=== PATIENT | female | born 1945 | race Caucasian/White ===

== ENCOUNTER 2017-02-10 10:17 | Outpatient (CLI) | payer MEDICARE ==
--- NOTE | 2017-02-11 15:28 | Mammography Report ---
DIGITAL SCREENING MAMMOGRAM: 02/10/2017 CLINICAL INDICATION: A 71-year-old, for screening. COMPARISON: 03/2013, 09/2011, 07/2010, 04/2009, 03/2008, 03/2007. TECHNIQUE: Routine CC and MLO projections were obtained of the breasts. FINDINGS: The breasts again demonstrate scattered fibroglandular densities bilaterally. Coarse and p unctate, typically benign calcifications are present. No suspicious masses, clustered microcalcificat ions, or regions of architectural distortion are identified. IMPRESSION: BENIGN FINDINGS. RECOMMENDATION: ROUTINE ANNUAL SCREENING UNLESS OTHERWISE CLINICALLY INDICATED. BIRADS CATEGORY 2-BENIGN FINDINGS. STANDARD QUALIFYING STATEMENTS 1. This examination was reviewed with the aid of Computer-Aided Detection (CAD). 2. A negative or benign imaging report should not delay biopsy if clinically suspicious findings are present. Consider surgical consultation if warranted. More than 5% of cancers are not identified by i maging. 3. Dense breasts may obscure an underlying neoplasm. JOB #: [id number] EXT JOB #:[id number]
== END 2017-02-10 10:18 | disposition home or self-care (01) ==
LOC: DI.N 10:17
PROVIDERS: ATTEND Family Medicine
DX: Z12.31 Encounter for screening mammogram for malignant neoplasm of breast (principal)
CPT/HCPCS: 77067

== ENCOUNTER 2018-05-01 19:36 | Emergency (ER) | payer MEDICARE ==
[2018-05-01 20:31] LABS: BASOPHILS # (AUTO) 0.1 10^3/uL (0.0-0.1); BASOPHILS % (AUTO) 0.8 %; EOSINOPHILS # (AUTO) 0.1 10^3/uL (0.0-0.7); EOSINOPHILS % (AUTO) 0.6 %; HGB - HEMOGLOBIN 13.4 g/dL (12.0-16.0); LYMPHOCYTES # (AUTO) 2.6 10^3/uL (1.5-3.5); LYMPHOCYTES % (AUTO) 17.7 %; MEAN CORPUSCULAR HEMOGLOBIN 28.3 pg (27.0-31.0); MEAN CORPUSCULAR HGB CONC 33.7 g/dL (32.0-36.0); MEAN CORPUSCULAR VOLUME 83.8 fL (81.0-99.0); MEAN PLATELET VOLUME 7.6 fL (7.9-10.8); MONOCYTES # (AUTO) 0.8 10^3/uL (0.0-1.0); MONOCYTES % (AUTO) 5.6 %; NEUTROPHILS % (AUTO) 75.3 %; PLT - PLATELET COUNT 281 10^3/uL (130-450); RED BLOOD COUNT 4.72 10^6/uL (4.20-5.40); RED CELL DISTRIBUTION WIDTH 14.5 % (12.0-15.0); WHITE BLOOD COUNT 14.6 x10^3/uL (4.8-10.8)
[2018-05-01] MEDS ORDERED: MECLIZINE 12.5 MG TABLET PO STA (20:42)
[2018-05-01] MEDS ORDERED: ONDANSETRON 4 MG/2 ML VIAL IVP STA (20:42)
[2018-05-01] MEDS ORDERED: KETOROLAC 30 MG/ML VIAL IVP STA (20:42)
[2018-05-01 20:43] LABS: BILIRUBIN,TOTAL 0.9 mg/dL (0.2-1.0); CALCIUM 9.2 mg/dL (8.5-10.3); CREATININE 1.2 mg/dL (0.4-1.0); TOTAL PROTEIN 8.1 g/dL (6.7-8.2)
--- NOTE | 2018-05-01 20:46 | ED Physician Documentation ---
PD HPI NVD - Stated complaint Stated Complaint: NAUSEA/VOMITING - Chief complaint Chief Complaint: Abd Pain - History obtained from History obtained from: Patient - History of Present Illness Timing - onset: Other (About 12 days ago she developed a flulike illness with body aches, low-grade fevers, nausea. She was getting better and spent all weekend in bed and then went to work today and got worse again with more vomiting and feeling vertiginous with a mild headache. Also mild diarrhea. She has urinary frequency and notice her blood sugars are higher than normal in the high 200s.) Review of Systems Ten Systems: 10 systems reviewed and negative Constitutional: reports: Fever, Chills, Fatigue Nose: denies: Rhinorrhea / runny nose, Congestion Throat: denies: Sore throat Respiratory: reports: Cough GI: reports: Nausea, Vomiting, Diarrhea. 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 - Present Medications Home Medications: Ambulatory Orders Medication Instructions Recorded Confirmed Levothyroxine [Synthroid] 125 mcg PO QDAC 11/14/12 11/10/16 Meclizine [Antivert] 25 mg PO Q6H PRN #15 tablet 08/13/14 11/10/16 Betamethasone Dipropionate 45 gm TP BID 08/06/16 08/06/16 Citalopram [CeleXA] 10 mg PO DAILY 08/06/16 11/10/16 Cyclobenzaprine [Flexeril] 10 mg PO TID PRN 08/06/16 08/06/16 Glipizide [Glipizide ER] 5 mg PO DAILY 08/06/16 11/10/16 Lisinopril 10 mg PO DAILY 08/06/16 11/10/16 Pioglitazone HCl 30 mg PO DAILY 08/06/16 11/10/16 Pramipexole Di-HCl [Mirapex] 0.5 mg PO DAILY 08/06/16 11/10/16 Ondansetron Odt [Zofran] 4 mg PO Q6H PRN 11/10/16 11/10/16 Lorazepam [Ativan] 1 mg PO TID PRN #10 tablet 05/01/18 Ondansetron Odt [Zofran] 4 mg TL Q6H PRN #10 tablet 05/01/18 - Allergies Allergies/Adverse Reactions: Allergies Allergy/AdvReac Type Severity Reaction Status Date / Time cefuroxime Allergy Unknown Verified 08/06/16 10:38 moxifloxacin Allergy Unknown Verified 08/06/16 10:38 acetaminophen AdvReac Unknown Verified 08/06/16 10:38 hydrocodone AdvReac Unknown Verified 08/06/16 10:38 cillins AdvReac Intermediate Nausea Uncoded 10/11/14 18:55 - Social History Does the pt smoke?: No Smoking Status: Never smoker Does the pt drink ETOH?: Yes Does the pt have substance abuse?: No - Immunizations Immunizations are current?: Yes PD ED PE NORMAL - Vitals Vital signs reviewed: Yes - General General: Alert and oriented X 3, No acute distress - HEENT HEENT: PERRL, EOMI, Pharynx benign - Neck Neck: Supple, no meningeal sign, No bony TTP - Cardiac Cardiac: RRR, No murmur - Respiratory Respiratory: No respiratory distress, Clear bilaterally - Abdomen Abdomen: Normal bowel sounds, Soft, Non tender - Back Back: No CVA TTP, No spinal TTP - Derm Derm: Normal color, Warm and dry - Extremities Extremities: No edema, No calf tenderness / cord - Neuro Neuro: Alert and oriented X 3, Normal speech Eye Opening: Spontaneous Motor: Obeys Commands Verbal: Oriented GCS Score: 15 - Psych Psych: Normal mood, Normal affect Results - Vitals Vitals: Vital Signs - 24 hr 05/01/18 05/01/18 05/01/18 19:45 22:05 22:57 Temperature 36.6 C Heart Rate 98 84 83 Respiratory 18 18 18 Rate Blood Pressure 178/87 H 184/73 H 138/60 H O2 Saturation 97 96 93 Oxygen O2 Source Room air - Labs Labs: Laboratory Tests 05/01/18 05/01/18 05/01/18 19:55 20:25 20:25 WBC 14.6 H RBC 4.72 Hgb 13.4 Hct 39.6 MCV 83.8 MCH 28.3 MCHC 33.7 RDW 14.5 Plt Count 281 MPV 7.6 L Neut # (Auto) 11.0 H Lymph # (Auto) 2.6 [place] # (Auto) 0.8 Eos # (Auto) 0.1 Baso # (Auto) 0.1 Absolute Nucleated RBC 0.00 Nucleated RBC % 0.0 Sodium 136 Potassium 3.5 Chloride 100 L Carbon Dioxide 25 Anion Gap 11.0 BUN 35 H Creatinine 1.2 H Estimated GFR (MDRD) 44 L Glucose 132 H Calcium 9.2 Total Bilirubin 0.9 AST 19 ALT 16 Alkaline Phosphatase 75 Troponin I Total Protein 8.1 Albumin 4.0 Globulin 4.1 Albumin/Globulin Ratio 1.0 Lipase 20 L Urine Color Urine Clarity Urine pH Ur Specific [place] Urine Protein Urine Glucose (UA) Urine Ketones Urine Occult Blood Urine Nitrite Urine Bilirubin Urine Urobilinogen Ur Leukocyte Esterase Ur Microscopic Review Urine Culture Comments Influenza A (Rapid) Negative Influenza B (Rapid) Negative 05/01/18 05/01/18 22:00 22:40 WBC RBC Hgb Hct MCV MCH MCHC RDW Plt Count MPV Neut # (Auto) Lymph # (Auto) [place] # (Auto) Eos # (Auto) Baso # (Auto) Absolute Nucleated RBC Nucleated RBC % Sodium Potassium Chloride Carbon Dioxide Anion Gap BUN Creatinine Estimated GFR (MDRD) Glucose Calcium Total Bilirubin AST ALT Alkaline Phosphatase Troponin I < 0.04 Total Protein Albumin Globulin Albumin/Globulin Ratio Lipase Urine Color YELLOW Urine Clarity CLEAR Urine pH 5.0 Ur Specific [place] >=1.030 H Urine Protein NEGATIVE Urine Glucose (UA) NEGATIVE Urine Ketones NEGATIVE Urine Occult Blood TRACE-LYSE Urine Nitrite NEGATIVE Urine Bilirubin NEGATIVE Urine Urobilinogen 0.2 (NORMAL) Ur Leukocyte Esterase NEGATIVE Ur Microscopic Review NOT INDICATED Urine Culture Comments NOT INDICATED Influenza A (Rapid) Influenza B (Rapid) - Rads (name of study) 2v chest Radiology: EMP read contemporaneously (Elevated right hemidiaphragm without acute disease) PD MEDICAL DECISION MAKING - ED course ED course: 72-year-old woman with what sounds like a prodrome of a viral illness with subjective fevers, chills, body aches was improving but then over this last couple of days has become more vertiginous with vomiting and poor oral intake resulting in labs showing dehydration. She had a white blood cell count but no evidence of infectious process and a benign abdominal exam, clear chest x-ray, and unremarkable urinalysis. Did not get much help with meclizine but did feel better after Ativan and IV fluids. Departure - Departure Disposition: 01 Home, Self Care Clinical Impression: Vertigo, Viral syndrome Vomiting Qualifiers: Vomiting type: unspecified Vomiting Intractability: non-intractable Nausea presence: with nausea Qualified Code(s): R11.2 - Nausea with vomiting, unspecified Condition: Good Record reviewed to determine appropriate education?: Yes Instructions: ED Viral Syndrome, ED Nausea Vomiting Prescriptions: Lorazepam [Ativan] 1 mg PO TID PRN #10 tablet PRN Reason: Dizziness Ondansetron Odt [Zofran] 4 mg TL Q6H PRN #10 tablet PRN Reason: Nausea / Vomiting Comments: Call your doctor to arrange a follow-up appointment, make the next available a ppointment. In the interim, return anytime if worse or if new symptoms develop. Your blood pressure was elevated today on check into the emergency department. This does not mean that you have hypertension, it is a common phenomenon to come to the emergency department and have elevated blood pressure. I recommend that you see your primary care physician within the week to have it rechecked when you are feeling better.
[2018-05-01] MEDS ORDERED: SODIUM CHLORIDE 0.9% 1,000 ML IV ONE (20:58)
--- NOTE | 2018-05-01 21:25 | XRAY Report ---
Reason: cough Procedure Date: 05/01/2018 Accession Number: [id number] / [id number] Procedure: XR - Chest 2 View X-Ray CPT Code: 53307 FULL RESULT: EXAM: CHEST RADIOGRAPHY EXAM DATE: 05/01/2018 09:12 PM. CLINICAL HISTORY: Cough and shortness of breath for 3 days. Nausea for 1 day. COMPARISON: None. TECHNIQUE: 2 views. FINDINGS: Lungs/Pleura: No focal opacities evident. No pleural effusion. No pneumothorax. Normal volumes. Elevated right hemidiaphragm noted anteriorly. Mediastinum: Heart and mediastinal contours are unremarkable. Other: No bony abnormality noted. IMPRESSION: Elevated right hemidiaphragm anteriorly, otherwise unremarkable 2-view chest radiography. RAD[facility]
[2018-05-01] MEDS ORDERED: LORazepam 2 MG/ML VIAL IVP STA (22:06)
[2018-05-01 22:21] LABS: BILIRUBIN,URINE NEGATIVE (NEGATIVE); GLUCOSE, URINE (UA) NEGATIVE (NEGATIVE); KETONES,URINE (UA) NEGATIVE (NEGATIVE); LEUKOCYTE ESTERASE, URINE NEGATIVE (NEGATIVE); NITRITE,URINE NEGATIVE (NEGATIVE); OCCULT BLOOD,URINE TRACE-LYSE (NEGATIVE); PROTEIN,URINE NEGATIVE (NEGATIVE); UROBILINOGEN,URINE 0.2 (NORMAL) E.U./dL (NORMAL)
[2018-05-01 22:23] LABS: CLARITY,URINE CLEAR (CLEAR)
[2018-05-01 22:59] VITALS: BP 138/60
== END 2018-05-01 23:11 | disposition home or self-care (01) ==
LOC: ED 19:36
DX: B34.9 Viral infection, unspecified (principal); R42 Dizziness and giddiness; R11.2 Nausea with vomiting, unspecified; E86.0 Dehydration; E11.9 Type 2 diabetes mellitus without complications; I10 Essential (primary) hypertension; D72.9 Disorder of white blood cells, unspecified
CPT/HCPCS: 36415; 71046; 80053; 81003; 83690; 84484; 85025; 87275; 87276; 96361; 96374; 96375; 99283; 99284; A9270; J2060; 81001; 87086

== ENCOUNTER 2020-04-29 17:37 | Emergency (ER) | payer MEDICARE, OTHER ==
[2020-04-29] MEDS ORDERED: SODIUM CHLORIDE 0.9% 1,000 ML IV STA (18:17)
--- NOTE | 2020-04-29 18:19 | ED Physician Documentation ---
PD HPI DYSPNEA - Stated complaint Stated Complaint: DIZZY,SOA,FEVER,COUGH - Chief complaint Chief Complaint: Resp - History obtained from History obtained from: Patient, Family - History of Present Illness Timing - onset: How many weeks ago (2) Timing - onset during: Rest Timing - duration: Weeks (2) Timing - details: Gradual onset, Still present, Waxing and waning Inciting event(s): URI Improved by: Rest, Sitting up Worsened by: Exertion Associated symptoms: Fever, Cough, Other (dizziness/lightheaded) Similar symptoms before: Diagnosis (dehydration) Recently seen: Not recently seen - Additional information Additional information: 74-year-old diabetic female has developed a cough and congestion over the past 2 weeks she is continue to have this cough and she has become lightheaded and dizzy. She is called her primary care doctor who is asked that she come to the emergency department for evaluation. She does note intermittent fever. Review of Systems Constitutional: reports: Fever Eyes: denies: Decreased vision Ears: denies: Ear pain Nose: reports: Congestion. 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 - Present Medications Home Medications: Ambulatory Orders Medication Instructions Recorded Confirmed Levothyroxine [Synthroid] 125 mcg PO QDAC 11/14/12 11/10/16 Meclizine [Antivert] 25 mg PO Q6H PRN #15 tablet 08/13/14 11/10/16 Betamethasone Dipropionate 45 gm TP BID 08/06/16 08/06/16 Citalopram [CeleXA] 10 mg PO DAILY 08/06/16 11/10/16 Cyclobenzaprine [Flexeril] 10 mg PO TID PRN 08/06/16 08/06/16 Glipizide [Glipizide ER] 5 mg PO DAILY 08/06/16 11/10/16 Pioglitazone HCl 30 mg PO DAILY 08/06/16 11/10/16 Pramipexole Di-HCl [Mirapex] 0.5 mg PO DAILY 08/06/16 11/10/16 lisinopriL [Lisinopril] 10 mg PO DAILY 08/06/16 11/10/16 Ondansetron Odt [Zofran] 4 mg PO Q6H PRN 11/10/16 11/10/16 Lorazepam [Ativan] 1 mg PO TID PRN #10 tablet 05/01/18 Ondansetron Odt [Zofran] 4 mg TL Q6H PRN #10 tablet 05/01/18 Azithromycin [Zithromax] 250 mg PO DAILY #6 tablet 04/29/20 - Allergies Allergies/Adverse Reactions: Allergies Allergy/AdvReac Type Severity Reaction Status Date / Time codeine Allergy Hives Verified 04/29/20 17:50 cillins Allergy Hives Uncoded 04/29/20 17:49 - Social History Does the pt smoke?: No Smoking Status: Never smoker Does the pt drink ETOH?: Yes Does the pt have substance abuse?: No - Immunizations Immunizations are current?: Yes PD ED PE NORMAL - Vitals Vital signs reviewed: Yes (afebrile and hypertensive ) - General General: Alert and oriented X 3, No acute distress, Well developed/nourished - HEENT HEENT: Atraumatic, PERRL, EOMI, Pharynx benign, Other (cerumen on the left right is clear. dry mucous membranes ) - Neck Neck: Supple, no meningeal sign - Cardiac Cardiac: RRR, No murmur - Respiratory Respiratory: No respiratory distress, Clear bilaterally - Abdomen Abdomen: Soft, Non tender - Back Back: No CVA TTP, No spinal TTP - Derm Derm: Normal color, Warm and dry, No rash - Extremities Extremities: No deformity, No edema - Neuro Neuro: Alert and oriented X 3, cane splicer 2-12 intact, No motor deficit, No sensory deficit, Normal speech Eye Opening: Spontaneous Motor: Obeys Commands Verbal: Oriented GCS Score: 15 - Psych Psych: Normal mood, Normal affect Results - Vitals Vitals: Vital Signs - 24 hr 04/29/20 04/29/20 17:43 18:17 Temperature 36.6 C Heart Rate 76 66 Respiratory 20 15 Rate Blood Pressure 162/72 H 157/58 H O2 Saturation 97 96 Oxygen O2 Source Room air - Labs Labs: Laboratory Tests 04/29/20 04/29/20 18:05 18:05 WBC 8.7 RBC 4.73 Hgb 14.1 Hct 42.9 MCV 90.7 MCH 29.8 MCHC 32.9 RDW 15.4 H Plt Count 245 MPV 9.7 Neut # (Auto) 4.8 Lymph # (Auto) 2.9 [place] # (Auto) 0.8 Eos # (Auto) 0.2 Baso # (Auto) 0.0 Absolute Nucleated RBC 0.00 Nucleated RBC % 0.0 Sodium 137 Potassium 3.8 Chloride 104 Carbon Dioxide 23 Anion Gap 10.0 BUN 27 H Creatinine 1.1 H Estimated GFR (MDRD) 48 L Glucose 171 H Calcium 9.0 Total Bilirubin 0.6 AST 21 ALT 23 Alkaline Phosphatase 65 Total Protein 7.3 Albumin 3.6 Globulin 3.7 Albumin/Globulin Ratio 1.0 Lipase 18 L - Rads (name of study) chest Radiology: Prelim report reviewed (Impression: No evidence of acute pulmonary process.), EMP read indepedently, See rad report PD MEDICAL DECISION MAKING - ED course Complexity details: reviewed old records, reviewed results, re-evaluated patient, considered differential, d/w patient, d/w family ED course: 74 y/o female with a history of diabetes and dehydration comes to the ED today dizzy and light headed and has a cough. She has reported fever at home and is afebrile here. COVID swab is obtained and a chest x-ray appears dry. She has elevation in BUN and is administered IV saline. No findings on CXR. AT shift change urinalysis is pending and care is turned over to Dr. Bermudez. Departure - Departure Clinical Impression: Dehydration, Bronchitis Condition: Stable Instructions: ED Upper Resp Infec Abx Tx, ED Dehydration Follow-Up: Laura Gray MD [Primary Care Provider] - Prescriptions: Azithromycin [Zithromax] 250 mg PO DAILY #6 tablet
[2020-04-29 18:26] LABS: BASOPHILS % (AUTO) 0.3 %; EOSINOPHILS # (AUTO) 0.2 10^3/uL (0.0-0.7); EOSINOPHILS % (AUTO) 2.1 %; HGB - HEMOGLOBIN 14.1 g/dL (12.0-16.0); LYMPHOCYTES # (AUTO) 2.9 10^3/uL (1.5-3.5); LYMPHOCYTES % (AUTO) 33.5 %; MEAN CORPUSCULAR HEMOGLOBIN 29.8 pg (27.0-31.0); MEAN CORPUSCULAR HGB CONC 32.9 g/dL (32.0-36.0); MEAN CORPUSCULAR VOLUME 90.7 fL (81.0-99.0); MEAN PLATELET VOLUME 9.7 fL (7.9-10.8); MONOCYTES # (AUTO) 0.8 10^3/uL (0.0-1.0); MONOCYTES % (AUTO) 8.8 %; NEUTROPHILS # (AUTO) 4.8 10^3/uL (1.5-6.6); NEUTROPHILS % (AUTO) 54.8 %; PLT - PLATELET COUNT 245 10^3/uL (130-450); RED BLOOD COUNT 4.73 10^6/uL (4.20-5.40); RED CELL DISTRIBUTION WIDTH 15.4 % (12.0-15.0); WHITE BLOOD COUNT 8.7 x10^3/uL (4.8-10.8)
[2020-04-29 18:39] LABS: ALBUMIN 3.6 g/dL (3.2-5.5); BILIRUBIN,TOTAL 0.6 mg/dL (0.2-1.0); CREATININE 1.1 mg/dL (0.4-1.0); TOTAL PROTEIN 7.3 g/dL (6.7-8.2)
--- NOTE | 2020-04-29 18:51 | XRAY Report ---
PROCEDURE: Chest 1 View X-Ray INDICATIONS: Shortness of breath TECHNIQUE: One view of the chest was acquired. COMPARISON: 05/01/2018 FINDINGS: Surgical changes and devices: None. Lungs and pleura: No pleural effusions or pneumothorax. Lungs are clear. Mediastinum: Mediastinal contours appear normal. Heart size is normal. Bones and chest wall: No suspicious bony lesions. Overlying soft tissues appear unremarkable. IMPRESSION: No evidence of acute pulmonary process. Reviewed by: Reginaldo Aguiar MD on 04/29/2020 6:50 PM PDT Approved by: Reginaldo Aguiar MD on 04/29/2020 6:50 PM PDT Station ID: [id number]
[2020-04-29 19:18] LABS: BILIRUBIN,URINE NEGATIVE (NEGATIVE); GLUCOSE, URINE (UA) NEGATIVE (NEGATIVE); KETONES,URINE (UA) NEGATIVE (NEGATIVE); LEUKOCYTE ESTERASE, URINE NEGATIVE (NEGATIVE); NITRITE,URINE NEGATIVE (NEGATIVE); OCCULT BLOOD,URINE NEGATIVE (NEGATIVE); PH,URINE 5.5 PH (5.0-7.5); PROTEIN,URINE NEGATIVE (NEGATIVE); UROBILINOGEN,URINE 0.2 (NORMAL) E.U./dL (NORMAL)
[2020-04-29 19:28] LABS: CLARITY,URINE CLEAR (CLEAR)
--- NOTE | 2020-04-29 21:18 | ED Physician Documentation ---
ED Addendum - Addendum Addendum: 04/29/20 21:17 Patient was still getting IV fluids and awaiting a urinalysis. She had been diagnosed with bronchitis. Chest x-ray did not have any infiltrates. Her oxygenation and vital signs are good. She is still having general weakness with getting up to the bathroom. However s he remains adequate oxygenation. Her urinalysis appears normal. We will continue with the intended discharge.
[2020-04-29 21:35] VITALS: BP 130/47
== END 2020-04-29 21:34 | disposition home or self-care (01) ==
LOC: ED 17:37
DX: J40 Bronchitis, not specified as acute or chronic (principal); E86.0 Dehydration; I10 Essential (primary) hypertension; E11.9 Type 2 diabetes mellitus without complications; Z79.84 Long term (current) use of oral hypoglycemic drugs
CPT/HCPCS: 36415; 71045; 80053; 81003; 83690; 85025; 96360; 99284; U0004; 81001; 87086

== ENCOUNTER 2020-05-23 09:51 | Emergency (ER) | payer MEDICARE, OTHER ==
[2020-05-23] MEDS ORDERED: diazePAM INJ 5 MG/ML SYRINGE IVP STA (10:15)
[2020-05-23 10:29] LABS: BASOPHILS % (AUTO) 0.4 %; EOSINOPHILS # (AUTO) 0.2 10^3/uL (0.0-0.7); EOSINOPHILS % (AUTO) 2.3 %; HGB - HEMOGLOBIN 13.8 g/dL (12.0-16.0); LYMPHOCYTES % (AUTO) 33.5 %; MEAN CORPUSCULAR HEMOGLOBIN 29.9 pg (27.0-31.0); MEAN CORPUSCULAR HGB CONC 32.5 g/dL (32.0-36.0); MEAN PLATELET VOLUME 9.4 fL (7.9-10.8); MONOCYTES # (AUTO) 0.7 10^3/uL (0.0-1.0); MONOCYTES % (AUTO) 7.4 %; NEUTROPHILS % (AUTO) 55.6 %; PLT - PLATELET COUNT 238 10^3/uL (130-450); RED BLOOD COUNT 4.61 10^6/uL (4.20-5.40); RED CELL DISTRIBUTION WIDTH 14.9 % (12.0-15.0)
[2020-05-23 10:48] LABS: ALBUMIN 3.5 g/dL (3.2-5.5); ALBUMIN/GLOBULIN RATIO 0.9 (1.0-2.2); BILIRUBIN,TOTAL 0.5 mg/dL (0.2-1.0); CREATININE 1.2 mg/dL (0.4-1.0); CRP - C-REACTIVE PROTEIN 3.5 mg/dL (0-1.0); MAGNESIUM 2.4 mg/dL (1.7-2.8); TOTAL PROTEIN 7.4 g/dL (6.7-8.2)
[2020-05-23] MEDS ORDERED: LACTATED RINGERS 1,000 ML IV STA (10:50)
--- NOTE | 2020-05-23 10:53 | CT Report ---
PROCEDURE: HEAD WO INDICATIONS: vertigo TECHNIQUE: Noncontrast 4.5 mm thick angled axial sections acquired from the foramen magnum to the vertex. For r adiation dose reduction, the following was used: automated exposure control, adjustment of mA and/or kV according to patient size. COMPARISON: 08/13/2014 FINDINGS: Image quality: Excellent. CSF spaces: Basal cisterns are patent. No extra-axial fluid collections. Ventricles are normal in size and shape. Brain: No midline shift. No intracranial masses or hemorrhage. Brain parenchymal volume loss is see n. Chronic small vessel ischemic changes are seen. Harmon-white matter interface is normal. Skull and face: Calvarium and visualized facial bones are intact, without suspicious lesions. Sinuses: Visualized sinuses and mastoids are clear. IMPRESSION: Unremarkable intracranial study for age, without an imaging explanation found for the patient's prese nting history of vertigo. If there is strong clinical concern for a stroke, please consider a dedicated brain MRI for further e valuation (assuming that there is no contraindication to MRI). Reviewed by: William Valiente MD on 05/23/2020 9:51 AM [facility] Approved by: William Valiente MD on 05/23/2020 9:51 AM [facility] Station ID: [id number]
[2020-05-23] MEDS ORDERED: CETIRIZINE 10 MG TABLET PO STA (11:31)
[2020-05-23] MEDS ORDERED: KETOROLAC 15 MG/ML VIAL IVP STA (11:31)
--- NOTE | 2020-05-23 11:39 | ED Physician Documentation ---
PD HPI HEENT - Stated complaint Stated Complaint: DIZZY - Chief complaint Chief Complaint: Neuro - History obtained from History obtained from: Patient - History of Present Illness Timing - onset: How many weeks ago (1-2) Timing - duration: Weeks (1-2) Timing - details: Gradual onset, Still present, Waxing and waning Location: Other (feeling vertigo with head movement that has worsened yesterday and today, despite use of Meclizine Rx by PMD 2 days ago.) Worsens: Position (head movement and turning to left side.) Associated symptoms: No: Fever, Congestion, Headache Similar symptoms before: Has not had sx before Recently seen: Clinic (seen by PMD virtual and Rx for Meclizine. Pt states not improved with this.) Review of Systems Constitutional: denies: Fever, Myalgias Ears: reports: Ear pain (mild to left). denies: Loss of hearing, Tinnitus/ringing Nose: denies: Rhinorrhea / runny nose, Congestion Throat: denies: Sore throat Cardiac: denies: Chest pain / pressure, Palpitations Respiratory: denies: Dyspnea, Cough Skin: denies: Rash, Lesions Neurologic: denies: Focal weakness, Numbness, Confused, Altered mental status, Headache, Head injury PD PAST MEDICAL HISTORY - Past Medical History Cardiovascular: Hypertension, High cholesterol Endocrine/Autoimmune: Type 2 diabetes, HyPERthyroidism, HyPOthyroidism Psych: Depression, Post traumatic stress disorder Musculoskeletal: Osteoarthritis - Past Surgical History 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 - Present Medications Home Medications: Ambulatory Orders Medication Instructions Recorded Confirmed Levothyroxine [Synthroid] 125 mcg PO QDAC 11/14/12 11/10/16 Meclizine [Antivert] 25 mg PO Q6H PRN #15 tablet 08/13/14 11/10/16 Betamethasone Dipropionate 45 gm TP BID 08/06/16 08/06/16 Citalopram [CeleXA] 10 mg PO DAILY 08/06/16 11/10/16 Cyclobenzaprine [Flexeril] 10 mg PO TID PRN 08/06/16 08/06/16 Glipizide [Glipizide ER] 5 mg PO DAILY 08/06/16 11/10/16 Pioglitazone HCl 30 mg PO DAILY 08/06/16 11/10/16 Pramipexole Di-HCl [Mirapex] 0.5 mg PO DAILY 08/06/16 11/10/16 lisinopriL [Lisinopril] 10 mg PO DAILY 08/06/16 11/10/16 Ondansetron Odt [Zofran] 4 mg PO Q6H PRN 11/10/16 11/10/16 Lorazepam [Ativan] 1 mg PO TID PRN #10 tablet 05/01/18 Ondansetron Odt [Zofran] 4 mg TL Q6H PRN #10 tablet 05/01/18 Azithromycin [Zithromax] 250 mg PO DAILY #6 tablet 04/29/20 dexAMETHasone [Decadron] 4 mg PO DAILY #5 tablet 05/23/20 diazePAM [Valium] 5 mg PO TID PRN #20 tablet 05/23/20 - Allergies Allergies/Adverse Reactions: Allergies Allergy/AdvReac Type Severity Reaction Status Date / Time codeine Allergy Hives Verified 04/29/20 17:50 cillins Allergy Hives Uncoded 04/29/20 17:49 - Social History Does the pt smoke?: No Smoking Status: Never smoker Does the pt drink ETOH?: Yes Does the pt have substance abuse?: No - Immunizations Immunizations are current?: Yes - POLST Patient has POLST: No PD ED PE NORMAL - Vitals Vital signs reviewed: Yes - General General: Alert and oriented X 3, No acute distress, Well developed/nourished, Other (holding head very still while lying on cart. ) - HEENT HEENT: Atraumatic, PERRL, EOMI (nystagmus noted to the left), Pharynx benign - Neck Neck: Supple, no meningeal sign, No adenopathy, No bruit - Cardiac Cardiac: RRR, No murmur - Respiratory Respiratory: Clear bilaterally - Derm Derm: Normal color, Warm and dry - Extremities Extremities: No tenderness to palpate, Normal ROM s pain - Neuro Neuro: Alert and oriented X 3, drying tunnel operator 2-12 intact, No motor deficit, No sensory deficit, Normal speech Results - Vitals Vitals: Vital Signs - 24 hr 05/23/20 05/23/20 05/23/20 09:58 10:05 11:03 Temperature 37.0 C Heart Rate 70 67 60 Respiratory 16 16 16 Rate Blood Pressure 145/57 H 144/95 H 118/54 L O2 Saturation 98 98 96 05/23/20 12:08 Temperature Heart Rate 60 Respiratory 16 Rate Blood Pressure 135/66 H O2 Saturation 97 Oxygen O2 Source Room air - Labs Labs: Laboratory Tests 05/23/20 05/23/20 10:25 10:25 WBC 9.0 RBC 4.61 Hgb 13.8 Hct 42.4 MCV 92.0 MCH 29.9 MCHC 32.5 RDW 14.9 Plt Count 238 MPV 9.4 Neut # (Auto) 5.0 Lymph # (Auto) 3.0 [place] # (Auto) 0.7 Eos # (Auto) 0.2 Baso # (Auto) 0.0 Absolute Nucleated RBC 0.00 Nucleated RBC % 0.0 Sodium 137 Potassium 3.9 Chloride 104 Carbon Dioxide 21 Anion Gap 12.0 BUN 37 H Creatinine 1.2 H Estimated GFR (MDRD) 44 L Glucose 246 H Calcium 9.0 Magnesium 2.4 Total Bilirubin 0.5 AST 18 ALT 20 Alkaline Phosphatase 59 C-Reactive Protein 3.5 H Total Protein 7.4 Albumin 3.5 Globulin 3.9 Albumin/Globulin Ratio 0.9 L - Rads (name of study) head CT Radiology: Prelim report reviewed (unremarkable intracranial study), See rad report PD MEDICAL DECISION MAKING - ED course Complexity details: re-evaluated patient (improved with diazepam. Able to sit and turn to side and not have much dizziness (not all gone). ), considered differential (peripheral vertigo with positional worsening and nystagmus. Has had some dizziness at times for week or two. Can get head CT to ensure no obvious mass effect. ), d/w patient Departure - Departure Disposition: Home, Self Care Clinical Impression: Peripheral vertigo involving left ear, Vertigo Condition: Stable Record reviewed to determine appropriate education?: Yes Instructions: ED Vertigo Unspecified Follow-Up: Laura Gray MD [Primary Care Provider] - Prescriptions: dexAMETHasone [Decadron] 4 mg PO DAILY #5 tablet diazePAM [Valium] 5 mg PO TID PRN #20 tablet PRN Reason: Spasms Comments: There is presume some inflammation and fluid pressure in the inner ear causing the vertigo/dizziness. Continue the meclizine to 3 times daily to help with dizziness. Decadron steroid anti-inflammatory daily for 5 days. If you find your blood sugars elevating significantly, then discontinue use of this. Add diazepam 3 times a day if needed for vertigo symptoms. Recheck if not improving well over the next several days. Slow and gentle movements. Discharge Date/Time: 05/23/20 12:35
[2020-05-23 12:09] VITALS: BP 135/66
== END 2020-05-23 12:35 | disposition home or self-care (01) ==
LOC: ED 09:51
DX: H81.392 Other peripheral vertigo, left ear (principal); I10 Essential (primary) hypertension; E11.9 Type 2 diabetes mellitus without complications; Z79.84 Long term (current) use of oral hypoglycemic drugs
CPT/HCPCS: 36415; 70450; 80053; 83735; 85025; 86140; 96361; 96374; 96375; 99284; A9270; J7120

== ENCOUNTER 2021-05-25 12:48 | Emergency (ER) | payer MEDICARE, OTHER ==
[2021-05-25 13:03] VITALS: BP 141/53
--- NOTE | 2021-05-25 13:42 | XRAY Report ---
PROCEDURE: Knee 4 View LT INDICATIONS: Trauma TECHNIQUE: 4 views of the left knee were acquired. COMPARISON: None. FINDINGS: Bones: No acute fractures or dislocations. No suspicious bony lesions. There is moderate narrowing of the medial femorotibial compartment joint space with marginal osteophyte formation. Tiny marginal osteophytes are seen at the lateral and anterior compartments. Soft tissues: No joint effusion. No suspicious soft tissue calcifications. IMPRESSION: No acute osseous abnormality. If there is clinical concern or persistent symptoms, addit ional imaging such as repeat radiographs or advanced imaging (e.g. CT, MRI) may be helpful for furthe r evaluation. Reviewed by: Vahe Allen MD on 05/25/2021 1:41 PM PST Approved by: Vahe Allen MD on 05/25/2021 1:41 PM PST Station ID: [id number]
--- NOTE | 2021-05-25 13:44 | XRAY Report ---
PROCEDURE: Ankle 3 View LT INDICATIONS: Trauma TECHNIQUE: 3 views of the ankle were acquired. COMPARISON: None. FINDINGS: Bones: No acute fractures or dislocations. Ankle mortise is normally aligned. No suspicious bony l esions. A small ossification adjacent to the medial malleolus may be sequela of prior trauma. There is a small plantar calcaneal enthesophyte. Soft tissues: Soft tissue edema is seen over the lateral malleolus. IMPRESSION: No acute osseous abnormality. If there is clinical concern or persistent symptoms, addit ional imaging such as repeat radiographs or advanced imaging (e.g. CT, MRI) may be helpful for furthe r evaluation. Reviewed by: Vahe Allen MD on 05/25/2021 1:43 PM PST Approved by: Vahe Allen MD on 05/25/2021 1:43 PM PST Station ID: [id number]
--- NOTE | 2021-05-25 14:07 | ED Physician Documentation ---
PD HPI LOWER EXT INJURY - Stated complaint Stated Complaint: LT ANKLE INJURY - Chief complaint Chief Complaint: Trauma Ext - Additional information Additional information: Patient is 75-year-old female presenting to the emergency department with left ankle pain. Reports "rolled" her left ankle yesterday evening. Believes that she may have been sleepy after taking too much of her gabapentin. Denies any fall, head trauma, loss of consciousness. Denies previous injuries to the same ankle. Review of Systems Ten Systems: 10 systems reviewed and negative Constitutional: denies: Fever Cardiac: denies: Chest pain / pressure Respiratory: denies: Dyspnea GI: denies: Nausea, Vomiting PD PAST MEDICAL HISTORY - Past Medical History Cardiovascular: Hypertension, High cholesterol Endocrine/Autoimmune: Type 2 diabetes, HyPERthyroidism, HyPOthyroidism Psych: Depression, Post traumatic stress disorder Musculoskeletal: Osteoarthritis - Past Surgical History Past Surgical History: Yes /[employer]: Hysterectomy - Present Medications Home Medications: Ambulatory Orders Medication Instructions Recorded Confirmed Levothyroxine [Synthroid] 125 mcg PO QDAC 11/14/12 11/10/16 Meclizine [Antivert] 25 mg PO Q6H PRN #15 tablet 08/13/14 11/10/16 Betamethasone Dipropionate 45 gm TP BID 08/06/16 08/06/16 Citalopram [CeleXA] 10 mg PO DAILY 08/06/16 11/10/16 Cyclobenzaprine [Flexeril] 10 mg PO TID PRN 08/06/16 08/06/16 Glipizide [Glipizide ER] 5 mg PO DAILY 08/06/16 11/10/16 Pioglitazone HCl 30 mg PO DAILY 08/06/16 11/10/16 Pramipexole Di-HCl [Mirapex] 0.5 mg PO DAILY 08/06/16 11/10/16 lisinopriL [Lisinopril] 10 mg PO DAILY 08/06/16 11/10/16 Ondansetron Odt [Zofran] 4 mg PO Q6H PRN 11/10/16 11/10/16 Lorazepam [Ativan] 1 mg PO TID PRN #10 tablet 05/01/18 Ondansetron Odt [Zofran] 4 mg TL Q6H PRN #10 tablet 05/01/18 Azithromycin [Zithromax] 250 mg PO DAILY #6 tablet 04/29/20 dexAMETHasone [Decadron] 4 mg PO DAILY #5 tablet 05/23/20 diazePAM [Valium] 5 mg PO TID PRN #20 tablet 05/23/20 Acetaminophen [Tylenol] 650 mg PO Q6H PRN #30 tablet 05/25/21 - Allergies Allergies/Adverse Reactions: Allergies Allergy/AdvReac Type Severity Reaction Status Date / Time codeine Allergy Hives Verified 04/29/20 17:50 Penicillins Allergy Hives Verified 05/25/21 13:01 cillins Allergy Hives Uncoded 04/29/20 17:49 - Social History Does the pt smoke?: No Smoking Status: Never smoker Does the pt drink ETOH?: Yes Does the pt have substance abuse?: No - Immunizations Immunizations are current?: Yes - POLST Patient has POLST: No PD ED PE NORMAL - General General: Alert and oriented X 3 - HEENT HEENT: Atraumatic - Neck Neck: Supple, no meningeal sign - Extremities Extremities: No deformity, No tenderness to palpate (It is to the lateral malleolus. DP, PT pulses palpable. Normal sensation else distal to the site of injury.) Results - Vitals Vitals: Vital Signs - 24 hr 05/25/21 13:01 Temperature 36.8 C Heart Rate 91 Respiratory 18 Rate Blood Pressure 141/53 H O2 Saturation 95 Oxygen O2 Source Room air PD MEDICAL DECISION MAKING - ED course Complexity details: reviewed results, d/w patient ED course: Patient is 72-year-old female presenting to the emergency department with left ankle pain. Afebrile, hemodynamically stable referral to the emergency department. Neurovascularly intact. X-rays obtained negative for any indication of acute fracture. Patient reported taking Tylenol at home for symptomatic management. She was given Robert wrap, crutches here in the emergency department. Encouraged and instructed in rest, ice, elevation needed. Encourage careful follow-up with primary care or return to the emergency department for new or worsening symptoms Departure - Departure Disposition: Home, Self Care Clinical Impression: Ankle injury, Knee injury Condition: Fair Instructions: ED Sprain Ankle Prescriptions: Acetaminophen [Tylenol] 650 mg PO Q6H PRN #30 tablet PRN Reason: PRN PAIN &/OR FEVER Comments: Thank you for allowing us to care for you today at [facility]. The x-rays of your ankle and knee did not show any fracture. I would like you to use Robert wraps at home for compression and continue to use the crutches provided here in the emergency department as needed. Ice packs and keeping your leg elevated are all excellent strategies for decreasing swelling and thereby decreasing pain. Regular Tylenol is also an excellent medication to take for pain. You can take 650 mg every 6 hours as needed. Do not exceed 3 total grams in a day. If it anytime you have any new or worsening symptoms or if your pain is not improving over the course the next 7 days please follow-up with either your primary care doctor or return to the emergency department for reevaluation. Discharge Date/Time: 05/25/21 14:47
[2021-05-25] MEDS ORDERED: ACETAMINOPHEN 325 MG TABLET PO STA (14:22)
== END 2021-05-25 14:47 | disposition home or self-care (01) ==
LOC: ED 12:48
DX: S99.912A Unspecified injury of left ankle, initial encounter (principal); S80.212A Abrasion, left knee, initial encounter; X50.1XXA Overexertion from prolonged static or awkward postures, initial encounter; I10 Essential (primary) hypertension; E11.9 Type 2 diabetes mellitus without complications; Z79.84 Long term (current) use of oral hypoglycemic drugs
CPT/HCPCS: 73564; 73610; 99282; 99283; A9270